=== PATIENT | male | born 1960 | race Caucasian/White ===

== ENCOUNTER 2017-02-20 21:22 | Emergency (ER) ==
[2017-02-20 21:34] VITALS: TEMP 98.1; BMI 25.7
[2017-02-20 21:53] LABS: BASOPHILS % (AUTO) 0.4 % (0.0-3.0); EOSINOPHILS # (AUTO) 0.2 K/ul (0.0-0.7); EOSINOPHILS % (AUTO) 1.8 % (0.0-7.0); HEMATOCRIT 51.6 % (42.0-52.0); HEMOGLOBIN 18.9 g/dl (14.0-18.0); IMMATURE GRANULOCYTE % (AUTO) 0.2 % (0.0-5.0); LYMPHOCYTES # (AUTO) 3.1 K/uL (0.60-3.4); LYMPHOCYTES % (AUTO) 32.6 (10.0-50.0); MEAN CORPUSCULAR HEMOGLOBIN 31.9 pg (27.0-31.0); MEAN CORPUSCULAR HGB CONC 36.6 (31.8-35.4); MEAN CORPUSCULAR VOLUME 87.2 fl (80.0-94.0); MONOCYTES # (AUTO) 0.5 K/uL (0.4-2.0); MONOCYTES % (AUTO) 5.7 (0-10); NEUTROPHILS # (AUTO) 5.6 K/ul (2.0-6.9); NEUTROPHILS % (AUTO) 59.3; PLATELET COUNT 252 10^3/uL (140-440); RED BLOOD COUNT 5.92 10^6/ul (4.70-6.10); WHITE BLOOD COUNT 9.44 K/ul (4.2-10.2)
--- NOTE | 2017-02-20 22:13 | ED.PDOC ---
General ED Provider: Dr. IZZY AHN-ER Chief Complaint: Fall Stated Complaint: i stood up right fast and i passed out and i fell and hit my ear Time Seen by Physician: 21:25 Mode of Arrival: Walk-In Information Source: Patient, Family Exam Limitations: No limitations Primary Care Provider: ESTEBAN WINTER Nursing and Triage Documentation Reviewed and Agree: Yes Skin Complaint Exam - Laceration/Head/Facial Complaint/Exam Location of Injury: Ear Mechanism of Injury: Blunt trauma Onset/Duration: one hour Symptoms Are: Still present Initial Severity: Mild Current Severity: Mild Aggravating: Movement Alleviating: Compression Associated Signs and Symptoms: Denies: Fever, Chills, Erythema, Numbness, Tingling Differential Diagnoses: Laceration Review of Systems - Review Of Systems Constitutional: Reports: No symptoms Eyes: Reports: No symptoms Ears, Nose, Mouth, Throat: Reports: No symptoms Respiratory: Reports: No symptoms Cardiac: Reports: No symptoms GI: Reports: No symptoms : Reports: No symptoms Musculoskeletal: Reports: No symptoms Skin: Reports: Bruising Neurological: Reports: No symptoms Endocrine: Reports: No symptoms Hematologic/Lymphatic: Reports: No symptoms All Other Systems: Reviewed and Negative Past Medical History - Past Medical History Previously Healthy: Yes Endocrine: Reports: Unknown, Other Cardiovascular: Reports: Unknown Respiratory: Reports: Unknown Hematological: Reports: Unknown Gastrointestinal: Reports: Unknown Genitourinary: Reports: Unknown Neuro/Psych: Reports: Unknown Musculoskeletal: Reports: Unknown Cancer: Reports: Unknown - Surgical History General Surgical History: Reports: Unknown - Family History Family History: Reports: Unknown - Social History Smoking Status: Former smoker Hx Substance Use: No Alcohol Screening: Occasionally Lives: With family - Immunizations Tetanus Shot up to Date: Yes Physical Exam - Physical Exam Appearance: Well-appearing, No pain distress, Well-nourished Pain Distress: Mild Eyes: ELISA, EOMI, Conjunctiva clear ENT: Ears normal, Nose normal, Oropharynx normal Neck: Supple Respiratory: Airway patent Cardiovascular: RRR, Pulses normal, No rub, No murmur GI/: Soft, Nontender, No masses, Bowel sounds normal, No Organomegaly Musculoskeletal: Normal strength, ROM intact, No edema, No calf tenderness Skin: Warm, Dry, Normal color (noted 0.5cm laceration right pinna) Neurological: Sensation intact Psychiatric: Affect appropriate, Mood appropriate Interpretation - Radiology Interpretation Radiology Interpretation By: Radiologist Radiology Results: Negative Exam Interpreted: CT Scan Procedures - Laceration/Wound Repair No standard instances Wound Description: Linear Wound Length (cm): 1cm right pinna Wound Explored: Clean Wound Irrigated: No Wound Prep: Hibiclens Wound Repaired With: Steri-strips, Dermabond Layer Closure?: No Sterile Dressing Applied?: Yes Splint Applied?: No Sling Applied?: No Re-Evaluation - Re-Evaluation Time of Re-Evaluation: 22:56 Status: Improved Vital Signs Stable: Yes Pain Level: 0 Appearance: NAD Lungs: Clear Skin: Warm and Dry Neuro: Alert and Oriented X3 CV: RRR Critical Care Note - Critical Care Note Total Time (mins): 0 Course - Course Hematology/Chemistry: 02/20/17 21:50 02/20/17 21:50 Orders, Labs, Meds: Lab Review 02/20/17 21:50 WBC 9.44 RBC 5.92 Hgb 18.9 H Hct 51.6 MCV 87.2 MCH 31.9 H MCHC 36.6 H RDW Coeff of Michelle 12.0 Plt Count 252 Immature Gran % (Auto) 0.2 Neut % (Auto) 59.3 Lymph % (Auto) 32.6 Ogle % (Auto) 5.7 Eos % (Auto) 1.8 Baso % (Auto) 0.4 Immature Gran # (Auto) 0.0 Neut # 5.6 Lymph # 3.1 Ogle # 0.5 Eos # 0.2 Baso # 0.0 Sodium 139 Potassium 4.1 Chloride 101 Carbon Dioxide 26 Anion Gap 16.1 BUN 23 H Creatinine 1.32 H Estimated GFR (MDRD) 56.00 BUN/Creatinine Ratio 17.42 Glucose 95 Calcium 10.0 Total Bilirubin 0.36 AST 44 H ALT 85 H Alkaline Phosphatase 83 Total Creatine Kinase 83 Troponin I < 0.0100 Total Protein 8.1 Albumin 4.2 Globulin 3.9 Albumin/Globulin Ratio 1.08 Orders Category Date Time Status EKG-(ED ONLY) Stat CARDIO 02/20/17 21:44 Completed Chief I Dispatcher [ED WELL SURVEYING ENGINEER APPLIED] .ONCE EMERGENCY 02/20/17 21:44 Active Orthostatic Vital Signs [ED ORTHOSTATIC VITAL SIGNS] . EMERGENCY 02/20/17 21: 52 Active ONCE CBC W/ AUTO DIFF Stat LAB 02/20/17 21:50 Completed COMPREHENSIVE METABOLIC PANEL Stat LAB 02/20/17 21:50 Completed CREATINE KINASE Stat LAB 02/20/17 21:50 Completed TROPONIN I Stat LAB 02/20/17 21:[address] CERVICAL SPINE W/O CONTRAST Stat RADS 02/20/17 21:[address] HEAD W/O CONTRAST Stat RADS 02/20/17 21:[address] MAXILLOFACIAL W/O CONTRAST Stat RADS 02/20/17 21:45 Completed Vital Signs: Temp Pulse Resp BP Pulse Ox 02/20/17 22:20 64 95/62 02/20/17 21:22 98.1 F 64 20 120/79 96 Departure - Departure Time of Disposition: 22:56 Disposition: HOME SELF-CARE Discharge Problem: Syncope Qualifiers: Syncope type: unspecified Qualifier Code: (R55) Syncope and collapse Laceration of ear Qualifiers: Encounter type: initial encounter Laterality: right Qualifier Code: (S01.311A) Laceration without foreign body of right ear, initial encounter Instructions: Syncope (ED) Condition: Good Pt referred to PMD for follow-up: Yes Additional Instructions[facility] Allergies/Adverse Reactions: Allergies No Known Allergies Allergy (Unverified 02/20/17 21:31) Home Medications: Ambulatory Orders Oxycodone HCl [Oxycontin] 15 mg PO BID 02/20/17 Paroxetine HCl [Paxil] 30 mg PO BEDTIME 02/20/17 Disposition Discussed With: Patient, Family
--- NOTE | 2017-02-20 22:13 | CT ---
EXAM: CT head without contrast. HISTORY: Head trauma. PROCEDURE: Contiguous axial CT images of the head without contrast with coronal and sagittal reform ats. FINDINGS: The ventricles and basal cisterns are normal in size and configuration. No evidence of mass or midline shift. No intracranial hemorrhage or evidence of large vessel infarct. No extra-ax ial fluid collection. The paranasal sinuses and mastoid air cells are well-aerated. No skull fractu re. Impression: Negative CT of the head.
[2017-02-20 22:21] LABS: ALANINE AMINOTRANSFERASE 85 U/L (12-78); ALBUMIN 4.2 g/dL (3.4-5.0); ALBUMIN/GLOBULIN RATIO 1.08; ALKALINE PHOSPHATASE 83 U/L (50-136); ANION GAP 16.1; ASPARTATE AMINO TRANSFERASE 44 U/L (15-37); BILIRUBIN,TOTAL 0.36 mg/dL (0.00-1.20); BLOOD UREA NITROGEN 23 mg/dL (7-18); BUN/CREATININE RATIO 17.42; CARBON DIOXIDE 26 mmol/L (21-32); CHLORIDE 101 mmol/L (98-107); CREATINE KINASE 83 U/L; CREATININE 1.32 mg/dL (0.60-1.10); GLUCOSE 95 mg/dL (70-100); POTASSIUM 4.1 mmol/L (3.5-5.1); SODIUM 139 mmol/L (136-145); TOTAL PROTEIN 8.1 g/dL (6.4-8.2)
--- NOTE | 2017-02-20 22:34 | CT ---
EXAM: CT scan facial bones HISTORY: Trauma COMPARISON: None. FINDINGS: Contiguous axial images obtained through the facial bones utilizing 3-mm collimation. Sa gittal and coronal reconstructions were imaged and reviewed.. The orbital structures are intact. T here is no acute fracture or bony abnormality. The visualized sinuses are clear. There is no evide nce of a mandibular fracture. IMPRESSION: No acute findings.
--- NOTE | 2017-02-20 22:36 | CT ---
EXAM: CT of the cervical spine without contrast. HISTORY: Injury. PROCEDURE: Contiguous axial CT images of the cervical spine without contrast with coronal and sagit linda reformats. FINDINGS: There is normal alignment of the cervical vertebral bodies and facets. The vertebral body heights are maintained. There is disc space narrowing at C5-C6 with vacuum disc phenomenon. There are posterior osteophytes at C5-C6. There is mild multilevel facet arthropathy. The C1-2 relationsh ip is maintained. No prevertebral soft tissue abnormality. Impression: No evidence of fracture. Normal alignment of the cervical spine with degenerative changes as described.
[2017-02-20 22:57] VITALS: BP 117/75
== END 2017-02-20 23:00 | disposition home or self-care (01) ==
LOC: ED 21:22
DX: R55 Syncope and collapse (principal); S01.311A Laceration without foreign body of right ear, initial encounter
CPT/HCPCS: 36415; 80053; 82550; 84484; 85025; 93005; 93010; 99283

== ENCOUNTER 2017-10-27 01:08 | Emergency (ER) ==
[2017-10-27 01:22] VITALS: BP 146/90; TEMP 98.7; BMI 28.5
--- NOTE | 2017-10-27 01:54 | DI ---
EXAM: Three views of the right shoulder. HISTORY: Fall. Pain. FINDINGS: The bones are intact with no evidence of fracture. The joint spaces are maintained. No so ft tissue abnormality. Impression: Negative right shoulder.
--- NOTE | 2017-10-27 02:21 | ED.PDOC ---
General ED Provider: Dr. CAMELIA WALTERS Chief Complaint: Fall Stated Complaint: Fell back side, hurt right shoulder, hurts to move. Time Seen by Physician: 02:19 Mode of Arrival: Walk-In Information Source: Patient Primary Care Provider: ESTEBAN KS Nursing and Triage Documentation Reviewed and Agree: Yes Reviewed sepsis parameters & appropriate labs ordered?: No System Inflammatory Response Syndrome: Not Applicable Sepsis Protocol: For patient's 13 years and over: Temp is 96.8 and below OR 101 and greater Pulse >90 BPM Resp >20/minute Acutely Altered Mental Status Are patient's symptoms suggestive of a new infection, such as: -Pneumonia -Skin, Soft Tissue -Endocarditis -UTI -Bone, Joint Infection -Implantable Device -Acute Abdominal Infection -Wound Infection -Meningitis -Blood Stream Catheter Infection -Unknown Musculoskeletal Complaint Exam - Shoulder Pain Complaint/Exam Mechanism of Injury: Reports: Trauma Symptoms Are: Still present Timing: Constant Initial Severity: Moderate Current Severity: Moderate Location: Reports: Discrete Character: Reports: Aching, Throbbing Alleviating: Reports: Ice, Compression Aggravating: Reports: Movement, Lifting Associated Signs and Symptoms: Denies: Swelling, Redness, Bruising, Fever, Weakness, Numbness, Tingling Non-Orthopedic Risk Factors: Reports: None DVT Risk Factors: Reports: None Septic Arthritis Risk Factors: Reports: None Related Surgical History: Reports: None Tenderness: Present: AC joint Limited Range of Motion: Present: Abduction, Adduction, Flexion, Extension Differential Diagnoses: Closed Fracture, Sprain Review of Systems - Review Of Systems Constitutional: Reports: No symptoms Eyes: Reports: No symptoms Ears, Nose, Mouth, Throat: Reports: No symptoms Respiratory: Reports: No symptoms Cardiac: Reports: No symptoms GI: Reports: No symptoms : Reports: No symptoms Musculoskeletal: Reports: Joint pain, Joint swelling Skin: Reports: No symptoms Neurological: Reports: No symptoms Endocrine: Reports: No symptoms Hematologic/Lymphatic: Reports: No symptoms All Other Systems: Reviewed and Negative Past Medical History - Past Medical History Previously Healthy: Yes Endocrine: Reports: Unknown, Other Cardiovascular: Reports: Unknown Respiratory: Reports: Unknown Hematological: Reports: Unknown Gastrointestinal: Reports: Unknown Genitourinary: Reports: Unknown Neuro/Psych: Reports: Unknown Musculoskeletal: Reports: Unknown Cancer: Reports: Unknown - Surgical History General Surgical History: Reports: Unknown - Family History Family History: Reports: Unknown - Social History Smoking Status: Former smoker Hx Substance Use: No Alcohol Screening: Occasionally - Immunizations Tetanus Shot up to Date: Yes Physical Exam - Physical Exam Appearance: Well-appearing Pain Distress: Moderate Eyes: ELISA, EOMI, Conjunctiva clear ENT: Ears normal, Nose normal, Oropharynx normal Respiratory: Airway patent, Breath sounds clear, Breath sounds equal, Respirations nonlabored Cardiovascular: RRR, Pulses normal, No rub, No murmur GI/: Soft, Nontender, No masses, Bowel sounds normal, No Organomegaly Musculoskeletal: Normal strength, ROM intact, No edema, No calf tenderness, Limited ROM, Limited strength Skin: Warm, Dry, Normal color Neurological: Sensation intact, Motor intact, Reflexes intact, Cranial nerves intact, Alert, Oriented Psychiatric: Affect appropriate, Mood appropriate Critical Care Note - Critical Care Note Total Time (mins): 30 Course - Course Orders, Labs, Meds: Orders Category Date Time Status SHOULDER, RIGHT MIN 2V Stat RADS 10/27/17 01:27 Completed Vital Signs: Temp Pulse Resp BP Pulse Ox 10/27/17 01:09 98.7 F 86 20 146/90 H 97 Departure - Departure Time of Disposition: 02:20 Disposition: HOME SELF-CARE Discharge Problem: Shoulder sprain Qualifiers: Encounter type: initial encounter Shoulder sprain type: unspecified sprain Laterality: right Qualified Code(s): S43.401A - Unspecified sprain of right shoulder joint, initial encounter Instructions: Shoulder Sprain (ED) Condition: Stable Pt referred to PMD for follow-up: Yes IPMP verified?: No Additional Instructions: refused to get shot, Rest , hot pack Continue taking pain medications Allergies/Adverse Reactions: Allergies No Known Allergies Allergy (Verified 10/27/17 01:17) Home Medications: Ambulatory Orders Oxycodone HCl [Oxycontin] 15 mg PO BID 02/20/17 Paroxetine HCl [Paxil] 30 mg PO BEDTIME 02/20/17 Omeprazole [Prilosec] 40 mg PO BEDTIME 10/27/17 Disposition Discussed With: Patient
== END 2017-10-27 02:25 | disposition home or self-care (01) ==
LOC: ED 01:08
DX: S43.401A Unspecified sprain of right shoulder joint, initial encounter (principal); W19.XXXA Unspecified fall, initial encounter
CPT/HCPCS: 99282

== ENCOUNTER 2017-12-20 13:45 | Outpatient (RCR) ==
--- NOTE | 2017-12-24 08:49 | RS.OPPTEV2 ---
Date of Note: 12/20/17 Visit #: 1 Date of Evaluation: 12/20/17 Payer Source: [place] ([place]) Date of Onset/Injury/Change in Status: 10/27/17 Surgery Performed?: No Treatment Diagnosis: Right shoulder pain, Limited right Shoulder ROM. History of Condition/Mechanism of Injury:: Mr. Cook states he hurt his right shoulder on 10/27/17. He reports getting his sock caught on a fence/gait in the house as he was stepping over it. He fell on his right shoulder. He came to the ER at [facility] and Xrays of the right shoulder were negative for fracture. Prior Level of Function.....Patient was independent with: ADL's, Self Care, Caregiving, Ambulation/Mobility, Community Integration/Access Functional Limitations: Sleep, Self Care, ADL's, Reaching, Pushing, Pulling, Lifting, Carrying, Community Access/Integration Current Subjective/complaints:: Patient reports right shoulder pain, along with radiating pain into the forearm and wrist. States he tolerates very limited movement in all directions due to pain. He wears a sling or keeps the right hand in his pocket to support the shoulder. States he is only getting 15-20 mins of sleep at a time due to right UE pain. States he cannot sleep on the right side and will wake up due to pain if he rolls over. Reports difficulty with all selfcare and ADL's due to limited and painful ROM. Reports he has noticed popping in the right shoulder when trying to use the right UE when getting dressed or showering. States he is having to rely on the left UE more. States he has horses to take care of and has to get help from family because he is unable to perform all care himself due to limited use of right UE. States [facility] and has been using [facility] Treatment Side (optional): Right Medical History Medical History: Hypertension Medical History Comments:: Thoracic Outlet Syndrome on right- diagnosed in 1984 Surgical History: Cholecystectomy Surgical History Comments:: Appendectomy, Carpal Tunnel surgery right wrist Smoking Status: Former smoker Diagnostic Testing/Imaging:: MRI scheduled for 01/01/18. Hx Home Medications: Oxycodone Patient's Goals: His goal is to regain functional, painfree AROM. Pain Assessment - Pain Description Pain Location: Right shoulder, with radiating pain into upper arm and forearm/ wrist. Pain Description: Sharp, Aching Current Pain Intensity: 5/10 Worst Pain Intensity: 8-9/10 Functional Outcome Measure UE Functional Index: 46 (46/80=42.5% impairment) - G Codes & Severity Modifier G Codes & Modifier: selfcare current CK. selfcare goal CJ Source of G Code score: UE functional index Observation - Observation Posture: Forward Head, Rounded Shoulders, Scapula Asymmetry (right elevated) Comments: Patient presents with right arm held at his side during ambulation into department. Handedness: Ambidextrous Comments: States he eats and writes with left hand, but does majority of other tasks with right hand. Shoulder ROM: Left WFL's Shoulder Muscle Strength: Left WFL's - Right Shoulder ROM Right Shoulder Flexion: 62 (degrees AROM) Right Shoulder Abduction: 48 (degrees AROM) Right Shoulder Internal Rotation: 70 (degrees AROM) Right Shoulder External Rotation: 10 (degrees AROM) Right Shoulder ROM Limitations: Pain Comments: All right shoulder AROM with pain and limited by pain. PROM of right shoulder: flexion 80 degrees, abduction 58 degrees, ER 30 degrees, IR WFL's. - Right Shoulder Strength Right Shoulder Flexion: 3+ Fair+ Right Shoulder Extension: 4+ Good + Right Shoulder Abduction: 3 Fair Right Shoulder Adduction: 4 Good Right Shoulder External Rotation: 4- Good- Right Shoulder Internal Rotation: 4- Good- - Special Tests Shoulder Empty Can (Supraspinatus) Test: Positive Right Shoulder Speed's Sign Test: Negative Right Shoulder Drop Arm Test: Positive Right Shoulder Arrieta-Wesly Impingement Test: Positive Right Sleeve Ironer Strength Left Hand Sleeve Ironer Strength: 85 lbs. Right Hand Sleeve Ironer Strength: 52 lbs. Dynamometer Testing Position: 2nd Position Palpation Comments:: Patient reports tenderness over insertion site of supraspintus and infraspinatus tendons. Sensation - Sensation Comments: Right UE sensation intact. - Treatment Modality: Ultrasound Parameters/Method Applied: 1.5 w/cm2 continuous X 10 mins over the lateral and anterior aspect of the right GH joint. Patient Position: Sitting Interventions - Exercise/Activities/Manual Therapy Exercises/Activities: Advised to continue using shoulder pulleys as instructed. Also recommended he try ice on the shoulder for pain management. Manual Therapy: NA HOME EXERCISE PROGRAM: shoulder pulleys - Charges Timed Code Treatment Minutes: 10 mins Total Treatment Time: 58 mins Procedures billed for this date of service:: EVAL medium EVALUATION COMPLEXITY LEVEL EVALUATION COMPLEXITY LEVEL: HISTORY: Medium (HX of right Thoracic Outlet syndrome, right Carpal tunnel syndrome), EXAM OF BODY SYSTEMS: Medium (Limited AROM, pain, limited ability to perform selfcare, ADL's), CLINICAL PRESENTATION: Medium (Presents with symptoms of RTC tear), CLINICAL DECISION MAKING: Medium Assessment Assessment: Patient presents to therapy with a diagnosis of right shoulder pain. He demonstrates marked limitation of both Active and Passive ROM due to pain and weakness. He exhibits positive Special Tests on the right shoulder of Impingement, Drop Arm, Empty Can. He demonstrates potential to regain functional PROM and some relief of pain with modalities and therapeutic exercises. Patient Education: Education of diagnosis, Body/Joint mechanics, Home Exercise Program, Home Safety, Activity Modification, Education of Plan of Care Rehab Potential: Fair Short Term Goals Goal #1: Pt independent and compliant with HEP. Goal to be met by: 12/30/17 Goal #2: Right shoulder PROM WFL's. Goal to be met by: 01/03/18 Goal #3: Right shoulder pain at rest <4/10. Goal to be met by: 01/03/18 Skilled Nursing Goals Goal #1: Pt knows HEP and to continue ex's to maintain functional level at D/C. Goal to be met by: 02/03/18 Goal #2: Score on UE functional scale improved to 56/80. Goal to be met by: 02/03/18 Goal #3: Pt able to sleep 6 hours with minimal interruption from right shoulder pain Goal to be met by: 02/03/18 Goal #4: Pt able to perform light ADL's at home with minimal right shoulder pain. Goal to be met by: 02/03/18 Plan - Treatment to be Provided Procedures: Therapeutic Exercises, Therapeutic Activity, Manual Therapy, Splinting/Taping (kinesio tape), Patient Education Modalities: Electrical Stimulation, Ultrasound/Phonophoresis, Cryotherapy, Hot Packs - Treatment Plan Frequency: 3 X week Duration: 4 weeks ORDER # VISITS AND/OR THROUGH DATE: 02/03/18 - Treatment Code (1) Shoulder pain Code(s): M25.519 - PAIN IN UNSPECIFIED SHOULDER Qualifiers: Chronicity: acute Laterality: right Qualified Code(s): M25.511 - Pain in right shoulder (2) Shoulder stiffness Qualifiers: Laterality: right Qualified Code(s): M25.611 - Stiffness of right shoulder , not elsewhere classified (3) Tendinopathy of right rotator cuff Code(s): M67.911 - UNSPECIFIED DISORDER OF SYNOVIUM AND TENDON, RIGHT SHOULDER Comments: M67.911
== END 2017-12-20 23:59 | disposition still patient (30) ==
PROVIDERS: ATTEND Family Medicine
DX: M25.511 Pain in right shoulder (principal); M25.611 Stiffness of right shoulder, not elsewhere classified; M67.911 Unspecified disorder of synovium and tendon, right shoulder

== ENCOUNTER 2017-12-27 13:00 | Outpatient (RCR) ==
--- NOTE | 2017-12-24 15:54 | RS.OPPTDN ---
Subjective Date of Note: 12/24/17 Visit #: 2 Date of Evaluation: 12/20/17 [place] Treatment Diagnosis: Right shoulder pain, Limited right Shoulder ROM. Current Subjective/complaints:: Patient reports no change in right shoulder pain. States he turned over last night in his sleep and felt severe pain and then was unable to go back to sleep. Pain Assessment - Pain Description Pain Location: right shoulder - Treatment Modality: Ultrasound Parameters/Method Applied: X 10 mins @ 1.5 w/cm2 continuous to right shoulder at lateral and anterior aspect of GH joint. Patient Position: Sitting Interventions - Exercise/Activities/Manual Therapy Exercises/Activities: In supine, patient received PROM in tolerable range. Attempted isometrics for right shoulder in all directions. Pain reported with isometrics. Tolerates PROM of right shoulder: flexion 80 degrees, abduction 35 degrees, ER 45 degrees, IR 50 degrees. Total minutes of Exercise: X 19 Manual Therapy: NA HOME EXERCISE PROGRAM: shoulder pulleys - Charges Timed Code Treatment Minutes: 29 mins Total Treatment Time: 29 mins Procedures billed for this date of service:: US, EX Assessment: Patient with continued pain. He demonstrates difficulty tolerating PROM and isometrics due to pain. May benefit from continued use of modalities to reduce pain and attempts of progressing exercises as tolerated. Patient Education: Education of diagnosis, Body/Joint mechanics, Activity Modification, Education of Plan of Care Short Term Goals Goal #1: Pt independent and compliant with HEP. Goal to be met by: 12/30/17 Goal #2: Right shoulder PROM WFL's. Goal to be met by: 01/03/18 Goal #3: Right shoulder pain at rest <4/10. Goal to be met by: 01/03/18 Art Model Goals Goal #1: Pt knows HEP and to continue ex's to maintain functional level at D/C. Goal to be met by: 02/03/18 Goal #2: Score on UE functional scale improved to 56/80. Goal to be met by: 02/03/18 Goal #3: Pt able to sleep 6 hours with minimal interruption from right shoulder pain Goal to be met by: 02/03/18 Goal #4: Pt able to perform light ADL's at home with minimal right shoulder pain. Goal to be met by: 02/03/18 Plan PLAN OF CARE EXPIRES ON:: 02/03/18 ORDER # VISITS AND/OR THROUGH DATE: 02/03/18 PLAN: Continue modalities and exercises as tolerated.
--- NOTE | 2017-12-26 13:55 | RS.OPPTDN ---
Subjective Date of Note: 12/26/17 Visit #: 3 Date of Evaluation: 12/20/17 P[place] Treatment Diagnosis: Right shoulder pain, Limited right Shoulder ROM. Current Subjective/complaints:: Mr. Cook states he got little sleep last night due to right shoulder pain. States he has been awake since 1am this morning. Reports pain with all movement in the department. - Treatment Modality: Ultrasound Parameters/Method Applied: 1.5 w/cm2 continuous X 10 mins to right shoulder with focus on lateral side of GH joint. Patient Position: Sitting - Heat/Cryotherapy Treatment: Cryotherapy Comments:: X 15 mins following US Interventions - Exercise/Activities/Manual Therapy Exercises/Activities: Pain with attempts of PROM and isometrics. Exercises not pushed today. Manual Therapy: NA HOME EXERCISE PROGRAM: shoulder pulleys - Charges Timed Code Treatment Minutes: 10 mins Total Treatment Time: 25 mins Procedures billed for this date of service:: US, CP Assessment: Patient with reports of marked pain in the right shoulder. Last night sleep was significantly limited due to right shoulder pain. Provided modalities today to try to calm down pain and inflammation. Patient Education: Education of diagnosis, Body/Joint mechanics Short Term Goals Goal #1: Pt independent and compliant with HEP. Goal to be met by: 12/30/17 Goal #2: Right shoulder PROM WFL's. Goal to be met by: 01/03/18 Goal #3: Right shoulder pain at rest <4/10. Goal to be met by: 01/03/18 Insurance Agents Supervisor Goals Goal #1: Pt knows HEP and to continue ex's to maintain functional level at D/C. Goal to be met by: 02/03/18 Goal #2: Score on UE functional scale improved to 56/80. Goal to be met by: 02/03/18 Goal #3: Pt able to sleep 6 hours with minimal interruption from right shoulder pain Goal to be met by: 02/03/18 Goal #4: Pt able to perform light ADL's at home with minimal right shoulder pain. Goal to be met by: 02/03/18 Plan PLAN OF CARE EXPIRES ON:: 02/03/18 ORDER # VISITS AND/OR THROUGH DATE: 02/03/18 PLAN: Will progress exercises for the right shoulder as tolerated to gain ROM and strength.
--- NOTE | 2017-12-27 13:40 | RS.OPPTDN ---
Subjective Date of Note: 12/27/17 Visit #: 3 Date of Evaluation: 12/20/17 P[place] Source: [place] Treatment Diagnosis: Right shoulder pain, Limited right Shoulder ROM. Current Subjective/complaints:: Mr. Cook reports significant pain in the right UE. States pain is going into the right shoulder blade and down to his wrist. States the pain is making him miserable. Rates pain today 8/10. He has been wearing a sling on the right UE for support, due to increased pain. - Treatment Modality: Electrical Stim Unattended Parameters/Method Applied: X 15 mins HVGS with one set of electrodes along the medial border of the right scapula, the other set of electrodes at the right GH joint. Heat applied along with Estim Patient Position: Sitting Interventions - Exercise/Activities/Manual Therapy Exercises/Activities: Pain with attempts of PROM and isometrics. Exercises not pushed today. Manual Therapy: NA HOME EXERCISE PROGRAM: shoulder pulleys - Charges Timed Code Treatment Minutes: 15 mins Total Treatment Time: 18 mins Procedures billed for this date of service:: Estim, Hp Assessment: Mr. Cook with significant reports of right UE pain. His sleep is limited due to pain. Treatment changed to Estim with heat to help decreased pain. The ability to progress exercises has been hendered by pain with ROM and isometrics. He demonstrates the need for Orthopaedic intervention, as pain is preventing him from being able to progress to therapy goals. Short Term Goals Goal #1: Pt independent and compliant with HEP. Goal to be met by: 12/30/17 Comments:: Pain with ROM limits his tolerance for exercises. Goal #2: Right shoulder PROM WFL's. Goal to be met by: 01/03/18 Progress towards Goal:: No Change Goal #3: Right shoulder pain at rest <4/10. Goal to be met by: 01/03/18 Progress towards Goal:: Regressing Comments:: 8/10 at rest today Driver Wheelchair Goals Goal #1: Pt knows HEP and to continue ex's to maintain functional level at D/C. Goal to be met by: 02/03/18 Progress towards goal: No Change Goal #2: Score on UE functional scale improved to 56/80. Goal to be met by: 02/03/18 Progress towards goal: No Change Goal #3: Pt able to sleep 6 hours with minimal interruption from right shoulder pain Goal to be met by: 02/03/18 Progress towards goal: No Change Goal #4: Pt able to perform light ADL's at home with minimal right shoulder pain. Goal to be met by: 02/03/18 Progress towards goal: No Change Plan PLAN OF CARE EXPIRES ON:: 02/03/18 ORDER # VISITS AND/OR THROUGH DATE: 02/03/18 PLAN: Patient sees his referring physician tomorrow. Unable to justify continuing therapy at this time due to pain hendering progression of exercises.
--- NOTE | 2018-01-16 10:36 | RS.OPPTDC ---
Date of Discharge: 01/16/18 Date of Evaluation: 12/20/17 Number of Visits: 4 Treatment Diagnosis: Right shoulder pain, Limited right Shoulder ROM. Current Complaints/Gains: Patient reported pain with all attempts of Passive and Active ROM. Reported pain with letting arm hang at his side to try to perform pendulum ex's. Also reported shoulder pain at rest. Contacted patient after his follow up appointment with doctor, he reports he will be having a reverse shoulder replacement in a week. Functional Outcome Measure - G Codes & Severity Modifier G Codes & Modifier: Selfcare D/C CK. Selfcare goal CJ Source of G Code score: same G Codes as Eval since no progress Interventions - Exercise/Activities/Manual Therapy Exercises/Activities: Na Manual Therapy: NA HOME EXERCISE PROGRAM: shoulder pulleys - Charges Timed Code Treatment Minutes: NA Total Treatment Time: NA Procedures billed for this date of service:: NA Assessment Assessment: Patient was unable to tolerate ROM or progression of exercises due to significant right shoulder pain. He demonstrated signicant rotator cuff involvement and further therapy was not indicated due to his lack of ability to progress. Short Term Goals Goal #1: Pt independent and compliant with HEP. Goal to be met by: 12/30/17 Progress towards Goal:: Not Met Goal #2: Right shoulder PROM WFL's. Goal to be met by: 01/03/18 Progress towards Goal:: Not Met Goal #3: Right shoulder pain at rest <4/10. Goal to be met by: 01/03/18 Progress towards Goal:: Not Met [employer] Goals Goal #1: Pt knows HEP and to continue ex's to maintain functional level at D/C. Goal to be met by: 02/03/18 Progress towards goal: Not Met Goal #2: Score on UE functional scale improved to 56/80. Goal to be met by: 02/03/18 Progress towards goal: Not Met Goal #3: Pt able to sleep 6 hours with minimal interruption from right shoulder pain Goal to be met by: 02/03/18 Progress towards goal: Not Met Goal #4: Pt able to perform light ADL's at home with minimal right shoulder pain. Goal to be met by: 02/03/18 Progress towards goal: Not Met Plan Reason for Discharge:: Discharged-will have surgery
== END 2018-01-19 23:59 ==
PROVIDERS: ATTEND Family Medicine
DX: M25.511 Pain in right shoulder (principal); M25.611 Stiffness of right shoulder, not elsewhere classified; M67.911 Unspecified disorder of synovium and tendon, right shoulder